=== PATIENT | female | born 1950 | race Caucasian/White ===

== ENCOUNTER 2019-08-16 15:21 | Emergency (ER) | payer MEDICARE, OTHER ==
[~2019-08-16] VITALS: Ht 154.9 cm; Wt 88.0 kg
[~2019-08-16 15:21] MED LIST: AMLODIPINE BESYL5 MG PO; BENTYL10 MG PO; CIPRO500 MG PO; COZAAR25 MG PO; HYDROCHLOROTHIA25 MG PO; IBUPROFEN400 MG PO; LOSARTAN POTASS50 MG PO; METRONIDAZOLE500 MG PO; POTASSIUM CHLO20 ME1 PO
[2019-08-16] MEDS ORDERED: LEVOTHYROXINE50 MCG PO (15:34)
--- NOTE | 2019-08-16 20:26 | EKG ---
[facility] [address] [facility] [place] [address] Signed Sinus rhythm with occasional premature ventricular complexes Nonspecific ST and T wave abnormality Abnormal ECG No previous ECGs available Confirmed by GABINO SOLORIO MD ([id number]) on 08/16/2019 8:25:57 PM Electronically Signed By: GABINO SOLORIO MD 08/16/192025 PATIENT NAME: JOHN GOVEA Electrocardiogram DATE OF : 46 PHYSICIAN: GABINO SOLORIO MD REPORT #: [id number] REPORT IS CONFIDENTIAL AND NOT TO BE RELEASED WITHOUT AUTHORIZATION
== END 2019-08-16 19:38 | disposition home or self-care (01) ==
LOC: ED 15:21
DX: R07.89 Other chest pain (principal); E87.6 Hypokalemia; Z85.3 Personal history of malignant neoplasm of breast; I10 Essential (primary) hypertension; Z88.5 Allergy status to narcotic agent; Z88.8 Allergy status to other drugs, medicaments and biological substances; Z79.899 Other long term (current) drug therapy
CPT/HCPCS: 70450; 71045; 80053; 81001; 83690; 84484; 85025; 85379; 85610; 85730; 93005; 93010; 96360; 99285-25; J7040

== ENCOUNTER 2021-07-04 20:25 | Emergency (ER) | payer MEDICARE, BC ==
[~2021-07-04] VITALS: Ht 154.9 cm; Wt 85.7 kg
[~2021-07-04 20:25] MED LIST changes: +LEVOTHYROXINE50 MCG PO
[2021-07-04] MEDS ORDERED: LISINOPRIL20 MG PO (22:46)
== END 2021-07-05 01:39 | disposition home or self-care (01) ==
LOC: ED 20:25
DX: R07.89 Other chest pain (principal); I10 Essential (primary) hypertension; Z85.3 Personal history of malignant neoplasm of breast; Z90.710 Acquired absence of both cervix and uterus; Z90.89 Acquired absence of other organs; Z96.651 Presence of right artificial knee joint; Z88.4 Allergy status to anesthetic agent; Z88.5 Allergy status to narcotic agent; Z88.8 Allergy status to other drugs, medicaments and biological substances; Z79.899 Other long term (current) drug therapy
CPT/HCPCS: 71045; 80053; 83735; 84484; 85025; 85379; 99285-25

== ENCOUNTER 2022-01-23 21:20 | Emergency (ER) | payer MEDICARE, BC ==
[~2022-01-23] VITALS: Ht 154.9 cm; Wt 85.7 kg
[~2022-01-23 21:20] MED LIST changes: +LISINOPRIL20 MG PO
[2022-01-23] MEDS ORDERED: SPIRONOLACTONE25 MG PO (21:31)
[2022-01-24] MEDS ORDERED: MAALOX ADVANCE1 EACH PO (00:35)
--- NOTE | 2022-01-27 17:07 | EKG ---
[facility] [address] [facility] [place] [address] Signed Normal sinus rhythm Nonspecific ST abnormality Abnormal ECG When compared with ECG of 16-AUG-2019 15:31, premature ventricular complexes are no longer present Confirmed by BEN CORTEZ MD ([id number]) on 01/27/2022 5:07:28 PM Electronically Signed By: BEN CORTEZ MD 01/27/22 1707 PATIENT NAME: JOHN GOVEA Electrocardiogram DATE OF : 46 PHYSICIAN: BEN CORTEZ MD REPORT #: [id number] REPORT IS CONFIDENTIAL AND NOT TO BE RELEASED WITHOUT AUTHORIZATION
== END 2022-01-24 01:37 | disposition home or self-care (01) ==
LOC: ED 21:20
DX: I10 Essential (primary) hypertension (principal); K21.9 Gastro-esophageal reflux disease without esophagitis; N17.9 Acute kidney failure, unspecified; Z85.3 Personal history of malignant neoplasm of breast; Z88.5 Allergy status to narcotic agent; Z88.8 Allergy status to other drugs, medicaments and biological substances; Z79.899 Other long term (current) drug therapy
CPT/HCPCS: 36415; 71046; 80053; 83690; 84484; 85025; 93005; 93010; 96374; 99285-25

== ENCOUNTER 2023-10-21 06:02 | Day surgery (SDC) | payer MEDICARE, BC ==
[2023-10-16 11:36] VITALS: BP 178/32
[~2023-10-21] VITALS: Ht 152.4 cm; Wt 84.1 kg
[~2023-10-21 06:02] MED LIST changes: +COZAAR100 MG PO; +MAALOX ADVANCE1 EACH PO; +SPIRONOLACTONE25 MG PO
[2023-10-21 06:19] VITALS: BP 168/67
[2023-10-21] MEDS ORDERED: LOSARTAN POTAS100 MG PO (06:24)
[2023-10-21] MEDS ORDERED: FLONASE ALLERG9.9 ML NAS (06:27)
[2023-10-21] MEDS ORDERED: MULTIPLE VITAM1 EAC2 PO (06:28)
[2023-10-21] MEDS ORDERED: GLUCOSAMINE1000 MG PO (06:28)
[2023-10-21] MEDS ORDERED: OCUVITE ADULT1 EAC3 PO (06:29)
--- NOTE | 2023-10-21 09:42 | NUR ---
10/21/23 0942 Jeannette Pierre 0923- PT ARRIVES TO PACU, SEMI BALDWIN POSITION. REACTIVE TO STIMULUS, O2 AT 6L PER MASK. ABD SOFT, NON DISTENDED. DRESSINGS IN PLACE X2, CDI. LR INFUSING TO RH IV. PT DENIES PAIN AND NAUSEA. ALL MONITORS IN PLACE. 0928- PT SATS REMAIN 100% ON 6L PER MASK, MOVED TO ROOM AIR AT THIS TIME. WILL CONTINUE TO MONITOR. 0935- REPORTS NO PAIN TO INCISION TO NECK, 5/10 PAIN TO LEFT ELBOW SITE. REPORTS TOLERABLE AT THIS TIME. PT RESTING INTERMITTENTLY. WAKES EASILY TO VERBAL STIMULI. WILL CONTINUE TO MONITOR. 0939- PT GIVEN ICE WATER, TOLERATING WELL.
[2023-10-21] MEDS ORDERED: PERCOCET 7.5-31 EACH PO (09:47)
[2023-10-21] MEDS ORDERED: TYLENOL EXTRA500 MG PO (09:47)
--- NOTE | 2023-10-21 09:55 | NUR ---
PT ARRIVES TO UNIT FROM PACU VIA STRETCHER. PT IS A&O AND ASKING QUESTIONS APPROPRIATELY. PT REPORTS NO PAIN ON BACK OF NECK SURGICAL SITE, BUT 6/10 PAIN ON SURGICAL SITE ON INSIDE OF ELBOW. PT TOLERATING APPLESAUCE, SIPS OF WATER, AND CRACKERS W/OUT DIFFICULTY. PT ON RA W/O2 >90% VIA PULSE OX. PT IS COUGHING OCCASIONALLY (NONPRODUCTIVE) AND NOTES SLIGHTLY IRRITATED THROAT. PT EDUCATED ABOUT AIRWAYS AND POSSIBLE IRRITATION FOR NEXT COUPLE DAYS POST-OP, PT STATES VERBAL UNDERSTANDING. REPORT RECEIVED FROM BHUPENDRA SALAMANCA, NOT AT BEDSIDE AT THIS TIME. SCANT AMOUNT OF RED SHADOWING ON BACK OF NECK DRESSING, INSIDE OF LEFT ARM DRESSING IS C/D/I, SMALL AMOUNT OF BRUISING. PT REPORTS NEED TO URINE VOID AT THIS TIME. PT STANDS IN PLACE AT BEDSIDE AND REPORTS NO DIZZINESS OR NAUSEA, STANDBY ASSIST TO BATHROOM FOR PT URINE VOID UNMEASURABLE, BUT QUANTITY SUFFICIENT. SMALL AMOUNT OF DRIBBLING AND INCONTINENCE IN PT UNDERWEAR, NEW DEPENDS AND WET WIPE PROVIDED. PT STANDING UP FROM TOILET, PT REPORTS SLIGHT NAUSEA/DIZZINESS, ALCOHOL SWAB PROVIDED AT NOSE. PT BACK TO BED VIA 1P RN ASSIST. PT NOW RESTING IN BED TOLERATING CRACKERS AND ICE WATER WITHOUT DIFFICULTY, PT STATES THIS IS HELPING HER NAUSEA AT THIS TIME. AT BEDSIDE, CALL LIGHT WITHIN REACH, NO FURTHER NEEDS AT THIS TIME.
[2023-10-21 10:03] VITALS: BP 164/55
--- NOTE | 2023-10-21 11:00 | NUR ---
IN PT ROOM FOR PAIN AND NAUSEA ASSESSMENT. PT REPORTS NO NAUSEA AT THIS TIME. PT STATES PAIN IS 4/10 AND TOLERABLE IN LFT MEDIAL ELBOW, NO CHANGE IN SWELLING OR BRUISING. NO ACUTE CHANGES FROM PREVIOUS SURGICAL SITE DRESSING ASSESSMENTS. VS TAKEN. PT RELAXING IN BED AND REPORTS NO FURTHER NEEDS OR QUESTIONS AT THIS TIME. CALL LIGHT WITHIN REACH, AT BEDSIDE.
[2023-10-21 11:01] VITALS: BP 149/57
--- NOTE | 2023-10-21 11:35 | NUR ---
IN PT ROOM FOR NAUSEA/DIZZINESS ASSESSMENT. PT REPORTS NO ACTIVE NAUSEA OR DIZZINESS AND STATES SHE FEELS MUCH BETTER. PT VERBALIZES DESIRE TO GO HOME AT THIS TIME. PT SITTING UP AT BEDSIDE AND ASSISTING W/GETTING DRESSED. CALL LIGHT WITHIN REACH, NO FURTHER NEEDS AT THIS TIME.
[2023-10-21 11:56] VITALS: BP 152/47
--- NOTE | 2023-10-21 12:05 | NUR ---
IN PT ROOM FOR DISCHARGE EDUCATION AND FINAL ASSESSMENT. PT REPORTS PAIN TOLERABLE AT 3/10 ON MEDIAL ASPECT OF LFT ELBOW. NO ACUTE CHANGES FROM PREVIOUS DRESSING ASSESSMENTS. PT UP TO BATHROOM FOR URINE VOID, THIS RN STANDBY ASSIST. PT REPORTS MINIMAL DIZZINESS W/AMBULATION AND SLIGHT NAUSEA W/OUT EMESIS. VS TAKEN. PT & PT STATE VERBAL UNDERSTANDING OF DISCHARGE EDUCATION AND NO FURTHER QUESTIONS AT THIS TIME. PT OFF OF UNIT VIA WC TO PASSENGER SIDE OF 'S VEHICLE. PT REPORTS NO FURTHER NEEDS AT THIS TIME.
--- NOTE | 2023-10-21 13:59 | OR ---
[facility] [address] [place], [place] [address] Signed DATE OF OPERATION: 10/21/2023 SURGEON: Pipo Waller MD PREOPERATIVE DIAGNOSES: 1. Posterior midline superior thorax soft tissue mass (buffalo hump). 2. Left medial antecubital soft tissue mass. POSTOPERATIVE DIAGNOSES: 1. 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 2. Deep subfascial left medial upper extremity soft tissue mass consistent with lipoma. PROCEDURES: 1. Excision of posterior thorax subfascial 6 cm lipomatous mass. 2. Excision of left antecubital deep subfascial soft tissue mass, 6 cm. ANESTHESIA: General endotracheal, Pipo Aguilera CRNA and local 8 mL of 0.25% Marcaine with epinephrine. INDICATION: A 73-year-old white woman is a patient of Dr. Skylar Davis. She has noted a "buffalo hump" type mass in the posterior superior aspect of her posterior thorax. It is relatively deep from a clinical standpoint. Additionally, she has a mass in the medial aspect of the elbow area, which extends above the transverse elbow crease. She is admitted at this time to undergo excision of both of them under an anesthetic. She understands the risk of bleeding, infection, nerve injury, recurrent disease and other unforeseen complications and wished to proceed. FINDINGS: The posterior thorax lesion was consistent with multilobulated benign lipoma. It is extended down to the deepest fascial layer and was excised completely. In the left elbow area in the antecubital space medially and somewhat posteriorly, a lipomatous mass was also noted. This was excised completely with special care to avoid injury to neurovascular structures in the area. Notably, the brachial artery likely is superficial to the tendon of the biceps given its position noted during surgery. Of course was unharmed. DESCRIPTION OF PROCEDURE: The patient was brought to the operating room, given a general endotracheal anesthetic. Electronically Signed By: PIPO WALLER MD 10/21/23 1359 PATIENT NAME: JOHN GOVEA OPERATIVE REPORT DATE OF : 46 REPORT #: [id number] PHYSICIAN: PIPO WALLER MD PCP: SKYLAR DAVIS MD REPORT IS CONFIDENTIAL AND NOT TO BE RELEASED WITHOUT AUTHORIZATION [facility] [address] [place] [address] Signed With all due care, she was placed in the prone kimberly-knife position with careful padding of the face, upper extremities, and so forth. The posterior superior thorax and neck was prepared with a chlorhexidine solution and draped sterilely. A transverse incision was made in the lowest possible portion with a 15 blade along the line of skin tension transversely. Dissection was carried through the dermis and a capsule consistent with benign lipomatous mass was noted. This was dissected free with blunt and electrocautery dissection extending down to the deepest cervical fascia. Complete excision was undertaken confirming a multilobulated lipomatous mass. Irrigation was undertaken after hemostasis was assured with electrocautery. The wound was closed in its deepest layers with interrupted 2-0 Vicryl and in layers more superficially. The skin was then closed with subcuticular 3-0 Vicryl. Steri-Strips were applied as was an Acticoat dressing. The same operating instruments were used with the drapes were taken down completely allowing for returning the patient to a supine position and preparation of the left elbow area with chlorhexidine solution. Once sterilely draped, examination of the natural skin tension in the elbow was undertaken. The mass was in the medial aspect directly in the antecubital space somewhat cephalad to the transverse elbow crease. Consideration is made for a longitudinal incision but avoidance of the joint space was deemed most advisable and on that basis natural skin crease was used for a transverse incision using a 15 blade. Dissection was carried through the dermis with blunt and electrocautery dissection defining the lipomatous mass more superiorly and medially. It ultimately became clear that it was very deep and entangled in the depths of the medial antecubital space more than expected. The brachial artery was identified and appeared to be superficial to the tendon of the biceps muscle in the area examined. Additionally, the medial compartment neurovascular structures were identified and spared including a complex of brachial venous channels. Lipomatous tissue was dissected free from the surrounding area as much as possible and complete excision of abnormal fat was completed. Irrigation was undertaken and some Wing applied to the depths of the wound for hemostatic benefit. The wound was closed in layers with interrupted 2-0 Vicryl and Steri-Strips were applied as was an Acticoat dressing. The patient was ultimately extubated and transferred to the recovery room in good condition having suffered no complications. Sponge, needle, and instrument counts were reported as correct x3. MD DRAGAN Cordero/HAILEYL /[id number] Electronically Signed By: PIPO WALLER MD 10/21/23 1359 PATIENT NAME: JOHN GOVEA OPERATIVE REPORT DATE OF : 46 REPORT #: [id number] PHYSICIAN: PIPO WALLER MD PCP: SKYLAR DAVIS MD REPORT IS CONFIDENTIAL AND NOT TO BE RELEASED WITHOUT AUTHORIZATION [address] [place], [place] [address] Signed cc: Dr. Skylar Davis Copies: ~ Electronically Signed By: PIPO WALLER MD 10/21/23 1359 PATIENT NAME: JOHN GOVEA OPERATIVE REPORT DATE OF : 46 REPORT #: [id number] PHYSICIAN: PIPO WALLER MD PCP: SKYLAR DAVIS MD REPORT IS CONFIDENTIAL AND NOT TO BE RELEASED WITHOUT AUTHORIZATION
[2023-10-29] MEDS ORDERED: VENTOLIN HFA18 GM (14:55)
== END 2023-10-21 12:05 | disposition home or self-care (01) ==
LOC: DS 06:02
PROVIDERS: ATTEND Surgery
PROC: 0JB40ZZ Excision of Right Neck Subcutaneous Tissue and Fascia, Open Approach (ICD-10-PCS; 2023-10-21)
PROC: 0JBH0ZZ Excision of Left Lower Arm Subcutaneous Tissue and Fascia, Open Approach (ICD-10-PCS; 2023-10-21)
PROC: 0JB50ZZ Excision of Left Neck Subcutaneous Tissue and Fascia, Open Approach (ICD-10-PCS; principal; 2023-10-21 07:30)
DX: R22.9 Localized swelling, mass and lump, unspecified (principal); I10 Essential (primary) hypertension; Z90.711 Acquired absence of uterus with remaining cervical stump; Z80.3 Family history of malignant neoplasm of breast; Z96.659 Presence of unspecified artificial knee joint
CPT/HCPCS: 00300; 88304; 88305; J0330; J0690; J1100; J1644; J1885; J2405; J2704; J2765; J3010; J7121

== ENCOUNTER 2023-10-30 10:38 | Day surgery (SDC) | payer MEDICARE, BC ==
[~2023-10-30] VITALS: Ht 152.4 cm; Wt 84.0 kg
[~2023-10-30 10:38] MED LIST changes: +FLONASE ALLERG9.9 ML NAS; +GLUCOSAMINE1000 MG PO; +LOSARTAN POTAS100 MG PO; +MULTIPLE VITAM1 EAC2 PO; +OCUVITE ADULT1 EAC3 PO; +PERCOCET 7.5-31 EACH PO; +TYLENOL EXTRA500 MG PO; +VENTOLIN HFA18 GM
[2023-10-30 11:09] VITALS: BP 178/55
[2023-10-30] MEDS ORDERED: ASPIRIN325 MG PO (11:19)
--- NOTE | 2023-10-30 13:33 | NUR ---
10/30/23 Ab3 Jeannette Pierre 1325- PT ARRIVES TO PACU, LEFT LATERAL POSITION. PT HAS EYES OPEN AND FALLING BACK TO SLEEP. DENIES PAIN OR NAUSEA. ABD SOFT, NON DISTENDED. LR INFUSING TO RW IV, O2 AT 3L PER NC. ALL MONITORS IN PLACE. 1327- SATS REMAIN 100% ON 3L PER NC, MOVED TO ROOM AIR AT THIS TIME. PT CONTINUES TO REST, WAKES EASILY TO VERBAL STIMULI.
[2023-10-30 14:07] VITALS: BP 149/58
--- NOTE | 2023-11-03 14:47 | PATH ---
[facility] [address] [place], [place] [address] Signed SPECIMEN(S): A DUODENAL BIOPSY SPECIMEN(S): B ANTRUM/PYLORUS BIOPSY SPECIMEN(S): C LOWER ESOPHAGEAL BIOPSY SPECIMEN(S): D MIDDLE ESOPHAGEAL BIOPSY SPECIMEN SOURCE: A. DUODENAL BIOPSY B. ANTRUM/PYLORUS BIOPSY C. LOWER ESOPHAGEAL BIOPSY D. MIDDLE ESOPHAGEAL BIOPSY CLINICAL HISTORY: Pre: Gallbladder pain. Post: Mild antral gastritis. FINAL PATHOLOGIC DIAGNOSIS: A. Duodenal biopsy: - Benign duodenal mucosa, negative for specific diagnostic abnormality. B. Antrum/pylorus biopsy: - Benign gastric type mucosa with focal slight chronic inflammation. - Negative for evidence of Helicobacter organisms on routine HE stained sections. C. Lower esophageal biopsy: - Benign esophageal and gastric type mucosa, negative for specialized intestinal metaplasia or dysplasia. - Negative for increased epithelial eosinophils within the esophageal mucosa. D. Middle esophageal biopsy: - Benign esophageal mucosa, negative for increased epithelial eosinophils. JVR:cml MICROSCOPIC EXAMINATION: Histologic sections of all submitted blocks are examined by light microscopy. These findings, together with the gross examination, support the pathologic diagnosis. GROSS DESCRIPTION: A. The specimen, labeled and designated "Ortega Govea, " and designated on the requisition "duodenum (NOS) biopsy," is received in formalin and consists of two kaye soft tissue fragments measuring 0.4 to 0.5 cm, both specimens are submitted entirely in (A1). B. The specimen, labeled and designated "Ortega Govea, " and designated on the requisition "stomach, antrum/pylorus biopsy," is received in formalin and PATIENT NAME: JOHN GOVEA PATHOLOGY DATE OF : 46 REPORT #: [id number] PHYSICIAN: MICHAEL PATHOLOGY PCP: OSIRIS DAVIS MD REPORT IS CONFIDENTIAL AND NOT TO BE RELEASED WITHOUT AUTHORIZATION [facility] [address] [place], [place] [address] Signed consists of one kaye soft tissue fragment measuring 0.6 cm, the specimen is submitted entirely in (B1). C. The specimen, labeled and designated "Mere, D, " and designated on the requisition "esophagus, lower esophagus biopsy," is received in formalin and consists of five kaye-white soft tissue fragments measuring 0.2 to 0.7 cm, all specimens are submitted entirely in (C1). D. The specimen, labeled and designated "Mere, D, " and designated on the requisition "esophagus, middle esophagus biopsy," is received in formalin and consists of three kaye-white soft tissue fragments measuring 0.3 to 0.7 cm, all specimens are submitted entirely in (D1). MMA (under the direct supervision of a pathologist) The Gross Description was prepared using a voice recognition system. The report was reviewed for accuracy; however, sound-alike word errors, addition and/or deletions may occur. If there is any question about this report, please contact Client Services. ADDITIONAL NOTES: Immunohistochemical and/or in situ hybridization studies if performed in this case included appropriate positive controls that reacted as expected. This test was developed and its performance characteristics determined by [facility]. It has not been cleared or approved by the U.S. Food and Drug Administration. The FDA has determined that such clearance or approval is not necessary. This test is used for clinical purposes. It should not be regarded as investigational or for research. [facility] is certified under the Clinical Laboratory Improvement Amendments of 1988 (CLIA) as qualified to perform high complexity clinical laboratory testing. PERFORMING LABORATORY: Technical component was performed by [facility], [facility] [address] [place] [address] (CLIA# [id number]). Professional interpretation was performed by [facility] - [facility], [address] [place] [address] [place] [address] (CLIA#: [id number]). Diagnostician: Scooter Ramirez MD Pathologist Electronically Signed 11/03/2023 PATIENT NAME: JOHN GOVEA PATHOLOGY DATE OF : 46 REPORT #: [id number] PHYSICIAN: MICHAEL PATHOLOGY PCP: OSIRIS DAVIS MD REPORT IS CONFIDENTIAL AND NOT TO BE RELEASED WITHOUT AUTHORIZATION [facility] [address] [place] [address] [place], [place] [address] Signed Copies: ~ PATIENT NAME: JOHN GOVEA PATHOLOGY DATE OF : 46 REPORT #: [id number] PHYSICIAN: MICHAEL DEMPSEY PCP: OSIRIS DAVIS MD REPORT IS CONFIDENTIAL AND NOT TO BE RELEASED WITHOUT AUTHORIZATION
--- NOTE | 2023-11-04 10:00 | OR ---
[facility] [address] [place], [place] [address] Signed DATE OF OPERATION: 10/30/2023 SURGEON: Pipo Waller MD PREOPERATIVE DIAGNOSIS: Classic biliary colic symptoms. Negative gallbladder ultrasound. POSTOPERATIVE DIAGNOSIS: Mild antral gastritis. No evidence of ulcer or neoplasm. PROCEDURE: Esophagogastroduodenoscopy with biopsy. ANESTHESIA: Intravenous sedation; fentanyl 100 mcg and Versed 2.5 mg. INDICATION: This 73-year-old white woman is a patient of Dr. Davis. She was referred with two lipomas, one on the posterior thorax and the other in the left medial elbow. Both were resected in the past week or so. Just prior to this event, she had severe right upper quadrant and epigastric pain and some subscapular pain. She was thought likely to have a gallbladder problem based on those symptoms. She said she has been evaluated for that in the distant past. A gallbladder ultrasound has been performed, which showed no sign of stones or other abnormality. I did offer a CCK-HIDA test, however, she refused. She notes that she had a CCK-HIDA test about 20 years ago, which caused severe nausea, vomiting, and so forth and essentially will not subject herself to the test again. Most likely, the test was positive at that time, but for whatever reason, cholecystectomy was not offered. On the possibility that this may represent a peptic problem, I have recommended upper endoscopy. If this is negative, then consideration would strongly be made for cholecystectomy without the benefit of the HIDA scan given her typical symptoms. The risk of bleeding, infection, perforation, and so forth related to upper endoscopy were reviewed with her. She understands and wished to proceed. FINDINGS: She did have some mild antral gastritis but the esophagus, duodenum and stomach were otherwise overall normal. CLOtest was negative as well. There was no sign of hiatal hernia and no sign of esophagitis. The duodenum had mild inflammation but no sign of stricture, neoplasm or ulceration. Electronically Signed By: PIPO WALLER MD 11/04/23 1000 PATIENT NAME: JOHN GOVEA OPERATIVE REPORT DATE OF : 46 REPORT #: [id number] PHYSICIAN: PIPO WALLER MD PCP: OSIRIS DAVIS MD REPORT IS CONFIDENTIAL AND NOT TO BE RELEASED WITHOUT AUTHORIZATION [facility] [address] [place], [place] [address] Signed DESCRIPTION OF PROCEDURE: The patient was brought to the endoscopy suite and placed in the lateral decubitus position, given intravenous sedation to the point of slurred speech and nystagmus. Full cardiopulmonary monitoring was maintained. A bite block was placed. An Olympus video upper endoscope was passed in the hypopharynx. The vocal cords were normal. Scope was easily passed in the esophagus, throughout its length it appeared normal. Scope was advanced to the stomach which was insufflated with air. There was no sign of bile within the stomach. Rugal folds were normal. Antral motility was normal. Pylorus was normal. Scope was passed through into the duodenum. The duodenum appeared somewhat edematous, but not ulcerated by any means. Biopsies were obtained to assess for celiac disease as well. The scope was withdrawn and biopsies then taken of the antrum which did have inflammatory change and edema, but no sign of ulceration. CLOtest biopsies were taken as well. Retroflexed view showed a normal flap valve. The scope was withdrawn and the distal esophagus, though normal was biopsied and the midesophagus also biopsied. The scope was withdrawn and removed. CONCLUDING DIAGNOSIS: Mild antral gastritis. The patient is not on any PPI or H2 luis a medicine, though she does take Motrin from time to time. This is mostly related to her recent lipoma resection. I think it is reasonable to offer cholecystectomy based on her symptoms and mindful that she is declining a CCK-HIDA test. Given her symptoms and lack of findings in a significant way on upper endoscopy, most likely she does have biliary colic from acalculous cholecystitis. I will review this with her and she will consider our plan. In the meantime, we will prescribe Prilosec 20 mg p.o. daily. Pipo Waller MD /HAILEYL /[id number] cc: Dr. aDvis Electronically Signed By: PIPO WALLER MD 11/04/23 1000 PATIENT NAME: JOHN GOVEA OPERATIVE REPORT DATE OF : 46 REPORT #: [id number] PHYSICIAN: PIPO WALLER MD PCP: OSIRIS DAVIS MD REPORT IS CONFIDENTIAL AND NOT TO BE RELEASED WITHOUT AUTHORIZATION [address] [address] Signed Copies: ~ Electronically Signed By: PIPO WALLER MD 11/04/23 1000 PATIENT NAME: ANTON GOVEAMAYRA JACKSON OPERATIVE REPORT DATE OF : 46 REPORT #: [id number] PHYSICIAN: PIPO WALLER MD PCP: OSIRIS DAVIS MD REPORT IS CONFIDENTIAL AND NOT TO BE RELEASED WITHOUT AUTHORIZATION
== END 2023-10-30 14:15 | disposition home or self-care (01) ==
LOC: OPS 10:38 → DS 10:38 → OPS 12:15 → DS 12:15 → OPS 14:15
PROVIDERS: ATTEND Surgery
PROC: 0DB68ZX Excision of Stomach, Via Natural or Artificial Opening Endoscopic, Diagnostic (ICD-10-PCS; 2023-10-30)
PROC: 0DB58ZX Excision of Esophagus, Via Natural or Artificial Opening Endoscopic, Diagnostic (ICD-10-PCS; 2023-10-30)
PROC: 0DB98ZX Excision of Duodenum, Via Natural or Artificial Opening Endoscopic, Diagnostic (ICD-10-PCS; principal; 2023-10-30 12:15)
DX: K29.50 Unspecified chronic gastritis without bleeding (principal); K29.80 Duodenitis without bleeding; I10 Essential (primary) hypertension; J45.909 Unspecified asthma, uncomplicated; Z90.711 Acquired absence of uterus with remaining cervical stump; Z80.3 Family history of malignant neoplasm of breast; Z96.659 Presence of unspecified artificial knee joint; Z88.1 Allergy status to other antibiotic agents; Z88.5 Allergy status to narcotic agent; Z88.8 Allergy status to other drugs, medicaments and biological substances; Z79.899 Other long term (current) drug therapy
CPT/HCPCS: 88305; 99153; G0500; J0690; J2250; J3010; J7121

== ENCOUNTER 2024-03-23 06:03 | Day surgery (SDC) | payer MEDICARE, BC ==
[2024-03-17 13:47] VITALS: BP 184/73
[~2024-03-23] VITALS: Ht 152.4 cm; Wt 81.8 kg
--- NOTE | ~2024-03-23 | CONS ---
[facility] [address] [place], [place] [address] Draft DATE OF CONSULTATION: 03/23/2024 ISSUE: Hypertension and cardiac dysrhythmia. HISTORY OF PRESENT ILLNESS: This 73-year-old white woman is a patient of Skylar Davis and seen by me last in the office on December 02, 2023, following upper endoscopy performed October 30, 2023. She is considered likely to have acalculous cholecystitis and a plan for laparoscopic cholecystectomy today undertaken. She upon entering to the operating room did have on monitor trigeminy, bigeminy, and other dysrhythmias, which were asymptomatic. Recent lab studies showed normal electrolytes including a potassium of 3.5. Additionally, despite taking her usual medication of amlodipine and hydrochlorothiazide and losartan, she was significantly hypertensive with a systolic pressure of 215. Monitoring in the operating room of her rhythm showed segments of non-dysrhythmic electrical activity punctuated by episodes of unifocal PVCs and probable premature atrial contractions as well. In conferring with the sliver handler, Ashley See, WET PROCESS OPERATOR delay of operation was deemed most advisable. I did discuss with the patient. She said she had a cardiac evaluation approximately two years ago in the [facility], which was "negative." From what I understand she may have had a Holter monitor. She has no associated chest pain or shortness of breath at this time. I have called the office of Dr. Davis and spoken with an medical laboratory assistant; Dr. Davis is not in today. I have advised the patient to set up an appointment with Dr. Davis at her earliest convenience and further management of her hypertension and better characterization of her dysrhythmia would be undertaken hopefully. The patient is not disabled by her biliary pain at this time and shows no evidence of acute calculous cholecystitis or anything of that sort. Therefore that issue was not emergency. It is noted that a 12-lead EKG had been performed on October 16, 2023 showing normal sinus rhythm with nonspecific ST and T-wave abnormality, and a repeat EKG today performed shows sinus rhythm with market sinus arrhythmia and frequent PVCs with nonspecific ST and T-wave abnormality. PATIENT NAME: JOHN GOVEA CONSULTATION DATE OF : 46 REPORT #: [id number] PHYSICIAN: PIPO WALLER MD PCP: SKYLAR DAVIS MD REPORT IS CONFIDENTIAL AND NOT TO BE RELEASED WITHOUT AUTHORIZATION [address] [address] Draft MD DRAGAN Cordero/MODL /[id number] cc: Skylar Davis MD Copies: ~ PATIENT NAME: JOHN GOVEA CONSULTATION DATE OF : 46 REPORT #: [id number] PHYSICIAN: PIPO WALLER MD PCP: SKYLAR DAVIS MD REPORT IS CONFIDENTIAL AND NOT TO BE RELEASED WITHOUT AUTHORIZATION
[~2024-03-23 06:03] MED LIST changes: +ASPIRIN325 MG PO; +LACTATED RINGER'S 1,000 ML IV SCH; +OMEPRAZOLE20 M1 PO; +VITAMIN B121000 MCG PO
[2024-03-23 06:23] VITALS: BP 167/55
[2024-03-23] MEDS ORDERED: SODIUM CHLORIDE 0.9% 40 ML IV ONE (06:53)
[2024-03-23] MEDS ORDERED: iopamidoL 30 ML VIAL ONE (06:53)
[2024-03-23] MEDS ORDERED: KETOROLAC TROMETHAMINE 30 MG/ML VIAL ONE (06:58)
[2024-03-23] MEDS ORDERED: ROCURONIUM BROMIDE 50 MG/5 ML SYR ONE (06:58)
[2024-03-23] MEDS ORDERED: propofoL 200 MG/20 ML VIAL ONE (06:58)
[2024-03-23] MEDS ORDERED: DEXAMETHASONE SOD PHOS 4 MG/ML VIAL ONE (06:58)
[2024-03-23] MEDS ORDERED: ondansetron HCL 4 MG/2 ML VIAL ONE (06:58)
[2024-03-23] MEDS ORDERED: LIDOCAINE HCL 1% 30 ML SDV ONE (06:58)
[2024-03-23] MEDS ORDERED: LIDOCAINE HCL 1% 5 ML SDV INJ ONE (07:00)
[2024-03-23] MEDS ORDERED: CEFAZOLIN SODIUM 2 GM/20 ML SYR IV SCH (07:00)
[2024-03-23] MEDS ORDERED: IBLOOD GLUCOSE TEST STRIP 1 EA TEST VI PRN ×2 (07:00→07:30)
[2024-03-23] MEDS ORDERED: HEParin SOD (PORCINE) 5,000 UNIT/0.5 ML SYR SUB-Q SCH (07:00)
[2024-03-23] MEDS ORDERED: ondansetron HCL 4 MG/2 ML VIAL IV PRN (07:30)
[2024-03-23] MEDS ORDERED: NALOXONE HCL 0.4 MG SYR IV PRN (07:30)
[2024-03-23] MEDS ORDERED: fentaNYL citrate 50 MCG/ML SDV IV PRN (07:30)
[2024-03-23] MEDS ORDERED: fentaNYL citrate 100 MCG/2 ML VIAL ONE (07:49)
[2024-03-23 08:15] VITALS: BP 189/73
[2024-03-23 08:30] VITALS: BP 177/66
[2024-03-23 08:45] VITALS: BP 184/60
[2024-03-23 09:00] VITALS: BP 172/68
--- NOTE | 2024-03-23 11:21 | NUR ---
GABRIELE 0805-PT BACK TO ROOM ON RA. RECEIVED REPORT FROM SAVITA LOZANO. PT DOING WELL NO VISIBLE DISTRESS NOTED, PT DENIES SOB, DIZZINESS, OR CHEST PAIN OR PRESSURE. GABRIELE 0815-PT UP TO BEDSIDE COMMODE. GABRIELE 0820-PT BACK TO BED. NO OTHER NEEDS AT THIS TIME. CALL LIGHT WITHIN REACH. LE 0851-PT DENIES SOB AND CHEST PAIN OR PRESSURE. STATES DOING FINE. NO OTHER NEEDS AT THIS TIME. WATER PROVIDED. AT BEDSIDE. CALL LIGHT WITHIN REACH. GABRIELE 0910-PT GETTING DRESSED. IN ROOM WITH PT. CALL LIGHT WITHIN REACH. LE 0920-THIS RN WALKED PT TO FRONT OF HOSPITAL. PT LEFT WITH .
--- NOTE | 2024-03-24 17:40 | EKG ---
[facility] [address] [facility] [place], [place] [address] Signed Sinus rhythm with frequent premature ventricular complexes Nonspecific ST and T wave abnormality Abnormal ECG No previous ECGs available Confirmed by YULISA ORNELAS MD ([id number]) on 03/24/2024 5:40:00 PM Electronically Signed By: YULISA ORNELAS 03/24/24 1740 PATIENT NAME: JOHN GOVEA Electrocardiogram DATE OF : 46 PHYSICIAN: YULISA ORNELAS REPORT #: [id number] REPORT IS CONFIDENTIAL AND NOT TO BE RELEASED WITHOUT AUTHORIZATION
== END 2024-03-23 09:20 | disposition home or self-care (01) ==
LOC: DS 06:03
PROVIDERS: ATTEND Surgery
DX: K80.50 Calculus of bile duct without cholangitis or cholecystitis without obstruction (principal); I10 Essential (primary) hypertension; I49.9 Cardiac arrhythmia, unspecified; Z53.9 Procedure and treatment not carried out, unspecified reason; Z96.659 Presence of unspecified artificial knee joint; Z88.5 Allergy status to narcotic agent; Z88.8 Allergy status to other drugs, medicaments and biological substances
CPT/HCPCS: 93005; 93010; J0690; J1100; J1644; J1885; J2405; J2704; J3010; J3490; J7121

== ENCOUNTER 2024-06-08 13:27 | Emergency (ER) | payer MEDICARE, BC ==
[~2024-06-08] VITALS: Ht 152.4 cm; Wt 86.8 kg
[~2024-06-08 13:27] MED LIST changes: +HYDROCHLOROTH12.5 MG PO; -HYDROCHLOROTHIA25 MG PO; -LACTATED RINGER'S 1,000 ML IV SCH
[2024-06-08] MEDS ORDERED: METOPROLOL SUCC50 MG PO (15:28)
[2024-06-08 16:02] VITALS: BP 200/59
== END 2024-06-08 16:05 | disposition home or self-care (01) ==
LOC: ED 13:27
DX: S80.02XA Contusion of left knee, initial encounter (principal); W01.0XXA Fall on same level from slipping, tripping and stumbling without subsequent striking against object, initial encounter; I10 Essential (primary) hypertension; H35.30 Unspecified macular degeneration; Z85.3 Personal history of malignant neoplasm of breast; Z96.651 Presence of right artificial knee joint; Z88.4 Allergy status to anesthetic agent; Z88.1 Allergy status to other antibiotic agents; Z88.5 Allergy status to narcotic agent; Z88.8 Allergy status to other drugs, medicaments and biological substances; Z79.899 Other long term (current) drug therapy
CPT/HCPCS: 73560; 99283

== ENCOUNTER 2024-10-17 04:33 | Emergency (ER) | payer MEDICARE, BC ==
[~2024-10-17] VITALS: Ht 152.4 cm; Wt 87.1 kg
[~2024-10-17 04:33] MED LIST changes: +METOPROLOL SUCC50 MG PO
[2024-10-17] MEDS ORDERED: IPRATROPIUM BROMIDE 2.5 ML VIAL INH ONE (04:45)
[2024-10-17] MEDS ORDERED: BISOPROLOL-HCT1 EAC2 PO (04:54)
[2024-10-17 04:58] LABS: BASOPHILS 0.5 % (0-2); EOSINOPHILS 1.8 % (0-6); HEMATOCRIT 39.4 % (35.0-50.0); HEMOGLOBIN 13.2 g/dL (12.0-18.0); LYMPHOCYTES 30.7 % (24-44); MCH 28.4 (27-36); MCHC 33.5 g/dl (30-36); MCV 84.6 fl (81-99); MONOCYTES 5.5 % (0-12); NEUTROPHILS 61.5 % (39-80); PLATELET COUNT 173 K/uL (140-440); RBC 4.65 M/ul (4.3-5.7); RDW 16.2 (10.5-15.0)
[2024-10-17 05:12] LABS: PH, VENOUS 7.398 (7.31-7.41)
[2024-10-17 05:40] LABS: ALBUMIN 3.6 g/dL (3.4-5.0); ALBUMIN/GLOBULIN RATIO 1.13 (1.1-2.4); ANION GAP 13.5 (7-21); BILIRUBIN, TOTAL 0.9 ng/dL (0.2-1.0); BUN/CREATININE RATIO 18.6 (6.0-28.6); CALCIUM 9.2 mg/dL (8.5-10.1); CREATININE, SERUM 0.86 mg/dL (0.55-1.02); POTASSIUM 4.5 mmol/L (3.5-5.1); PROTEIN, TOTAL 6.8 g/dL (6.4-8.2)
[2024-10-17] MEDS ORDERED: LASIX40 MG PO (05:59)
[2024-10-17] MEDS ORDERED: FUROSEMIDE 40 MG/4 ML VIAL IV ONE (06:00)
[2024-10-17 06:33] VITALS: BP 179/65
--- NOTE | 2024-10-22 10:04 | EKG ---
[facility] [address] [place] [address] Signed Sinus rhythm with occasional premature ventricular complexes and fusion complexes Nonspecific ST and T wave abnormality Abnormal ECG When compared with ECG of 23-MAR-2024 07:53, fusion complexes are now present Confirmed by Shaq Aquino DO ([id number]) on 10/22/2024 10:04:32 AM Electronically Signed By: SHAQ AQUINO DO 10/22/24 1004 PATIENT NAME: JOHN GOVEA RENETTA Electrocardiogram DATE OF : 46 PHYSICIAN: SHAQ AQUINO DO REPORT #: [id number] REPORT IS CONFIDENTIAL AND NOT TO BE RELEASED WITHOUT AUTHORIZATION
== END 2024-10-17 06:33 | disposition home or self-care (01) ==
LOC: ED 04:33
PROVIDERS: Family Medicine
DX: I11.0 Hypertensive heart disease with heart failure (principal); I50.9 Heart failure, unspecified; Z88.1 Allergy status to other antibiotic agents; Z88.5 Allergy status to narcotic agent; Z88.4 Allergy status to anesthetic agent; Z88.8 Allergy status to other drugs, medicaments and biological substances; Z79.899 Other long term (current) drug therapy
CPT/HCPCS: 36415; 71045; 80053; 82803; 83880; 84484; 85025; 85379; 93005; 93010; 94640; 96374; 99285-25; J1940

== ENCOUNTER 2024-11-24 06:15 | Emergency (ER) | payer MEDICARE, BC ==
[~2024-11-24] VITALS: Ht 401.3 cm; Wt 84.8 kg
[~2024-11-24 06:15] MED LIST changes: +BISOPROLOL-HCT1 EAC2 PO; +LASIX40 MG PO
[2024-11-24] MEDS ORDERED: FUROSEMIDE 40 MG/4 ML VIAL IV ONE (06:30)
[2024-11-24 06:44] LABS: PH, VENOUS 7.363 (7.31-7.41)
[2024-11-24 06:45] LABS: BASOPHILS 0.7 % (0-2); EOSINOPHILS 2.4 % (0-6); HEMATOCRIT 36.2 % (35.0-50.0); HEMOGLOBIN 12.5 g/dL (12.0-18.0); LYMPHOCYTES 27.7 % (24-44); MCH 28.8 (27-36); MCHC 34.7 g/dl (30-36); MCV 82.9 fl (81-99); MONOCYTES 5.7 % (0-12); NEUTROPHILS 63.5 % (39-80); PLATELET COUNT 166 K/uL (140-440); RBC 4.36 M/ul (4.3-5.7); RDW 14.7 (10.5-15.0)
[2024-11-24 07:01] LABS: CORONAVIRUS COVID-19 AG NEGATIVE (NEGATIVE); INFLUENZA A AG NEGATIVE (NEGATIVE); INFLUENZA B AG NEGATIVE (NEGATIVE)
[2024-11-24 07:08] LABS: ALBUMIN 3.7 g/dL (3.4-5.0); ALBUMIN/GLOBULIN RATIO 1.28 (1.1-2.4); ANION GAP 9.9 (7-21); BILIRUBIN, TOTAL 0.5 mg/dL (0.2-1.0); BUN/CREATININE RATIO 19.27 (6.0-28.6); CALCIUM 9.6 mg/dL (8.5-10.1); CREATININE, SERUM 0.83 mg/dL (0.55-1.02); POTASSIUM 3.9 mmol/L (3.5-5.1); PROTEIN, TOTAL 6.6 g/dL (6.4-8.2)
[2024-11-24] MEDS ORDERED: LASIX40 MG PO (07:25)
[2024-11-24 07:33] VITALS: BP 166/82
--- NOTE | 2024-11-24 17:34 | EKG ---
[facility] [address] [facility] [place] [address] Signed Sinus rhythm with occasional premature ventricular complexes Nonspecific ST and T wave abnormality Abnormal ECG When compared with ECG of 17-OCT-2024 04:51, fusion complexes are no longer present Nonspecific T wave abnormality no longer evident in Inferior leads Nonspecific T wave abnormality, improved in Lateral leads Confirmed by Jax Guillen MD ([id number]) on 11/24/2024 5:34:41 PM Electronically Signed By: JAX GUILLEN MD 11/24/24 1734 PATIENT NAME: JOHN GOVEA Electrocardiogram DATE OF : 46 PHYSICIAN: JAX GUILLEN MD REPORT #: [id number] REPORT IS CONFIDENTIAL AND NOT TO BE RELEASED WITHOUT AUTHORIZATION
== END 2024-11-24 07:35 | disposition home or self-care (01) ==
LOC: ED 06:15
PROVIDERS: Family Medicine
DX: I11.0 Hypertensive heart disease with heart failure (principal); I50.9 Heart failure, unspecified; Z88.5 Allergy status to narcotic agent; Z88.1 Allergy status to other antibiotic agents; Z88.8 Allergy status to other drugs, medicaments and biological substances; Z79.899 Other long term (current) drug therapy
CPT/HCPCS: 36415; 71045; 80053; 82803; 83880; 84484; 85025; 85379; 93005; 93010; 96374; 99285-25; J1940